=== PATIENT | female | born 1975 | race Caucasian/White ===

== ENCOUNTER 2017-06-11 08:04 | Day surgery (SDC) | payer OTHER ==
[2017-06-10 17:12] VITALS: BMI 25.7
[~2017-06-11 08:04] MED LIST: HEPARIN NA (PORCINE) 5,000 UNITS/ML 1ML VIAL SQ ONE
--- NOTE | 2017-06-11 09:57 | HP ---
History & Physical Update - History History: No Change - Physical Physical: No Change - Assessment Assessment: No Change - Plan Plan: No Change
[2017-06-11] MEDS ORDERED: DEXAMETHASONE SOD PHOSPHATE 4 MG/1 ML VIAL ONE (10:02)
[2017-06-11] MEDS ORDERED: ceFAZolin SODIUM 1 GM VIAL ONE (10:02)
[2017-06-11] MEDS ORDERED: PROPOFOL 20 ML ONE (10:02)
[2017-06-11] MEDS ORDERED: MIDAZOLAM HCL 2 MG/2 ML SINGLE DOSE VIAL ONE (10:02)
[2017-06-11] MEDS ORDERED: ROCURONIUM BROMIDE 50 MG/5 ML VIAL ONE (10:02)
[2017-06-11] MEDS ORDERED: LIDOCAINE HCL/PF 2% SDV 5ML VIAL ONE (10:02)
[2017-06-11] MEDS ORDERED: LIDOCAINE HCL 1%, 10 MG/ML (20ML VIAL) ONE (10:03)
[2017-06-11] MEDS ORDERED: HEPARIN NA (PORCINE) 5,000 UNITS/ML 1ML VIAL ONE (10:05)
[2017-06-11] MEDS ORDERED: ONDANSETRON 4 MG/2 ML VIAL IVPUSH PRN (10:15)
[2017-06-11] MEDS ORDERED: LACTATED RINGERS SOLUTION 1,000 ML IV SCH (10:15)
[2017-06-11] MEDS ORDERED: oxyCODONE HCL 5 MG TABLET PO PRN (10:15)
[2017-06-11] MEDS ORDERED: ceFAZolin SODIUM 1 GM VIAL IVPB ONE (10:36)
[2017-06-11] MEDS ORDERED: HEPARIN NA (PORCINE) 5,000 UNITS/ML 1ML VIAL SQ ONE ×2 (12:00)
--- NOTE | 2017-06-11 12:26 | OP ---
Operative Note - Note: Operative Date: 06/11/17 Pre-Operative Diagnosis: Carcinoma right breast. Right deep cerevical lymphadenopathy. Operation: 1)Excision of right deep cervical lymph node. 2)Placement of portacth in left chest , with port , under ultrasound guidance and under fluoroscopy Findings: Enlatged cervical lymph node , mass right breast. Post-Operative Diagnosis: Same as Pre-op Surgeon: Patricia Ferrell Anesthesiologist/DRUM MAKER: Daquan Morocho Anesthesia: General Specimens Removed: Right deep cervical lymph node Estimated Blood Loss (mls): 10 Operative Report Dictated: Yes
[2017-06-11 14:23] VITALS: TEMP 98
--- NOTE | 2017-06-11 15:19 | OP ---
DATE OF OPERATION: 06/11/2017 PREOPERATIVE DIAGNOSIS: Large carcinoma of the right breast with right cervical lymphadenopathy. POSTOPERATIVE DIAGNOSIS: Large carcinoma of the right breast with right cervical lymphadenopathy. OPERATIVE PROCEDURE: 1. Excision biopsy of right deep cervical lymph node. 2. Placement of Port-A-Cath (centrally placed venous catheter with port) under ultrasound and fluoroscopy. SURGEON: Leonora Ferrell MD ANESTHESIA: General anesthesia. OPERATIVE DESCRIPTION: This 42-year-old woman presented with a large mass in the right breast which was more than 8 cm in diameter. Patient was found to have cervical lymph nodes in the supraclavicular region on clinical examination in the office. Patient is, therefore, brought in for biopsy of the right cervical lymph node. She has a diagnosis of the breast with KRAS carcinoma. She is being treated by neoadjuvant therapy before having a mastectomy. Consent was obtained for the procedure. Risks, benefits, and complications were discussed. The patient was placed with the neck in extension after she was given general anesthesia. Time-out was called, and she was given 1 g of Ancef. The neck was painted and draped. A horizontal skin incision was made in the supraclavicular region of the neck. The incision was deepened through the skin, platysma, and the subcutaneous tissue. A hard 2-cm in diameter cervical lymph node was identified. This was completely excised, sent to Pathology. Frozen section showed no gross malignancy. Further workup will be done. The wound was irrigated. Hemostasis was satisfactory. The platysma was approximately by interrupted 3-0 Vicryl sutures, and skin approximated with continuous 4-0 Monocryl sutures in a running subcuticular fashion. Patient was then redraped. The left chest and the upper right chest were painted and draped. Again, a time-out was called. A horizontal skin incision was made over the 3rd intercostal space and the anterior chest wall for about 4-5 cm. This was carried all the way down to the chest wall. The subcutaneous tunnel was then created all the way up to the clavicle. Small incision was made in the infraclavicular region, and using the [employer] system, the left subclavian vein was accessed with the needle. This was guided with the ultrasound showing subclavian vein and the subclavian artery. Once the needle was introduced into the subclavian vein, small guidewire was introduced through the vein into the superior vena cava. This was monitored under fluoroscopy. The needle was removed, and a large dilator sheath was introduced over the guidewire into the subclavian vein. The narrow guidewire was removed, and a larger guidewire for placement of the Port-A-Cath was introduced through the sheath into the superior vena cava. This was again monitored under fluoroscopy to be going in the right direction. The sheath was removed, and a large dilator sheath for the Port-A-Cath was introduced through the guidewire into the superior vena cava. This was monitored again under fluoroscopy. The dilator was removed; sheath was left in place. A double lumen Port-A-Cath was then brought through the chest wall incision down into the incision in the infraclavicular region. This was then introduced through the sheath into the superior vena cava. The sheath was then peeled off. Tip of the catheter was placed in the superior vena cava. There was no arrhythmia. The excess of the catheter was then cut, and the catheter was then connected to the double lumen chamber. With a locking device, the catheter was locked in place. The chamber and the catheter were flushed with heparinized saline with free flow of blood through the catheter into the chamber. Once again, the chamber was flushed with heparinized saline of 1:5000 heparin, 1 mL was injected into the chamber. There was no kink in the system, and the tip of the catheter was appropriate in the superior vena cava. There was no pneumothorax. Patient was being ventilated satisfactorily. The wound was irrigated. The chamber was anchored to the chest wall with interrupted 3-0 Vicryl sutures. The subcutaneous fat was approximated with interrupted 3-0 Vicryl sutures, and skin approximated with continuous 4-0 Monocryl sutures in a running subcuticular fashion. The small incision in the infraclavicular region was also approximated with buried interrupted 3-0 Vicryl sutures and subcuticular 4-0 Monocryl sutures. Estimated blood loss was less than 10 mL. Sponge count and instrument count were correct. Steri-Strips were applied across incision. Sterile dressing was placed. Patient will get a chest x-ray in the recovery room. Sponge count and instrument count were correct. Patient tolerated the procedure well, was extubated, and sent to the recovery room in satisfactory and stable condition. John CAMPA/[id number]
[2017-06-11 16:09] VITALS: BP 130/77; PULSE 83
--- NOTE | 2017-06-17 09:05 | PATH ---
Surgical Pathology Report Patient Name: FRANCISCA YANG [facility]. Rec. #: [id number] /Age/Gender: 1975 (Age: 42) / F Account: [id number] Location: [facility] SURGICAL Taken: 06/11/2017 Received: 06/11/2017 Reported: 06/17/2017 Physicians: Leonora Ferrell M.D. Specimen(s) Received RIGHT CERVICAL LYMPH NODE Clinical History Hx/o breast cancer Enlarged right cervical lymph node Intraoperative Consult Diagnosis Lymph node, right cervical, touch prep: Lymphoid population present; no carcinoma identified. Dr. Nguyen, 06/11/17. Final Diagnosis LYMPH NODE, RIGHT CERVICAL, EXCISIONAL BIOPSY: BENIGN LYMPH NODE WITH MILD PARACORTICAL HYPERPLASIA. NO EVIDENCE OF METASTATIC CARCINOMA OR LYMPHOPROLIFERATIVE DISORDER. SEE COMMENT. Comment: This case was seen in consultation with hematopathology service at [place], [place] ([id number], Dr. Robert). The diagnosis above reflects the consultation opinion. The specimen consists of a lymph node with attached surrounding adipose tissue. The architecture of the lymph node is preserved, the sinuses are patent. Follicles with germinal center formation are present; focally expanded paracortical zone is seen. Immunostains demonstrate normal distribution of B-cells and T-cells. Aberrant immunoprofiles are not seen. CD20 and PAX-5 immunostains highlight B-cells; CD3 and CD5 highlight T cells. The germinal centers are positive for CD10 and BCL-6 and are negative for BCL-2 immunostains. BCL-1 is negative. CD21 and CD23 highlight follicular dendritic cells. RON highlights very rare positive cells. Ki67 is positive in germinal centers. Ae1/Ae3 keratin is negative. Flow cytometry performed and interpreted on the concurrent specimen [place], [place] ([id number]) showed no clonal B-cells or atypical T-cell population. The sample was composed mostly of small and medium-sized lymphocytes including a mixture of polyclonal B-cells and immunophenotypically normal CD4+ and CD8+ T-cells. Electronically Signed Curt Nguyen M.D. Gross Description Received fresh, labeled "right cervical lymph node biopsy" is a 1.5 x 1 x 0.4 cm hayward-pink rubbery lymph node. The specimen is bisected, one touch prep is made. A portion of the specimen is submitted in RPMI for flow cytometry. The remaining of the specimen is submitted in one cassette. AF/06/11/2017 final06/11/2017
--- NOTE | 2017-06-17 17:20 | CONS ---
DATE OF CONSULTATION: 06/17/2017 PULMONARY CONSULTATION REFERRING PHYSICIAN: Fe Jimenez M.D. HISTORY OF PRESENT ILLNESS: The patient is a 42-year-old female recently diagnosed breast cancer, history of asthma, sinusitis, scoliosis, admitted to [facility] for chemotherapy. Patient was recently diagnosed with right breast mass. The biopsy was positive for CA, for malignancy. Patient also recently underwent a lymph node biopsy in the cervical node and was negative, and revealed no evidence of metastatic carcinoma. Patient presented to [facility] for chemotherapy. Apparently patient was noted today while undergoing chemotherapy to have some mild expiratory wheezes, which was treated with inhaled bronchodilators with good clinical response. The patient has history of asthma since age 21. She has never been intubated. There is no history of hospitalization. She is currently maintained on Singulair and albuterol inhaler. daily basis. Denies any chest pains or palpitations. At the current time, she denies any shortness of breath, cough, hemoptysis. Denies any fevers, weight loss, or night sweats. PAST MEDICAL HISTORY: Again includes breast carcinoma, COPD, asthma, sinusitis, hearing loss and scoliosis. REVIEW OF SYSTEMS: No orthopnea, no PND, no cough, no chest pain, no palpitation, no abdominal pain, no lower extremity edema. MEDICATION: Albuterol p.r.n. and dexamethasone, , ranitidine, diphenhydramine. PHYSICAL EXAMINATION: General: The patient is a well-developed, well-nourished female, awake, alert, in no acute distress. Vital signs: She is afebrile. Blood pressure 100/64, respiratory rate 14. HEENT: Head is normocephalic, atraumatic. Neck: Supple without any lymphadenopathy. Heart: Regular. S1, S2. Chest: Clear. Abdomen: Soft. Bowel sounds positive. Extremities: No cyanosis, edema. LABORATORY: WBC is 10.8, hemoglobin 13.0, hematocrit 40.8 with platelet count 280,000. BUN 18, creatinine 0.6. Chest x-ray from June 11, 2017, no infiltrates and/or effusions. Possible subcutaneous emphysema, right supraclavicular region. IMPRESSION: 1. Recently diagnosed breast cancer, currently on chemotherapy. 2. Cervical adenopathy, biopsy negative. 3. Asthma, clinically stable. PLAN: Inhaled bronchodilators p.r.n., continue chemotherapy as per oncology. PFTs as outpatient. Also obtain followup chest x-ray. CHERY JAMES M.D. DUGLAS/[id number]
== END 2017-06-11 15:55 | disposition home or self-care (01) ==
LOC: JASU-SURG 08:04
PROVIDERS: ATTEND Specialist
PROC: 07B10ZX Excision of Right Neck Lymphatic, Open Approach, Diagnostic (ICD-10-PCS; principal; 2017-06-11 09:30)
PROC: 0JH63XZ Insertion of Tunneled Vascular Access Device into Chest Subcutaneous Tissue and Fascia, Percutaneous Approach (ICD-10-PCS; 2017-06-11 09:30)
DX: C50.911 Malignant neoplasm of unspecified site of right female breast (principal); R59.0 Localized enlarged lymph nodes
CPT/HCPCS: 36561; 38510; 76937; 77001; C1751; 71010-TC; 76000-TC; 84703; 88305-TC; 88329; 94760; J1644

== ENCOUNTER 2017-06-17 07:47 | Day surgery (SDC) | payer OTHER ==
[2017-06-17] MEDS ORDERED: RANITIDINE IVPB ONE (10:00)
[2017-06-17] MEDS ORDERED: DEXAMETHASONE INJECTION 20 MG in SODIUM CHLORIDE 50 ML IVPB ONE (10:00)
[2017-06-17] MEDS ORDERED: SODIUM CHLORIDE IVPB ONE (10:00)
[2017-06-17] MEDS ORDERED: DIPHENHYDRAMINE IVPB ONE (10:00)
[2017-06-17] MEDS ORDERED: PALONOSETRON HCL 0.25 MG in SODIUM CHLORIDE 50 ML IVPB ONE (10:00)
[2017-06-17] MEDS ORDERED: SODIUM CHLORIDE 250 ML IV ONE ×2 (10:00→11:30)
[2017-06-17] MEDS ORDERED: PACLITAXEL 138 MG in SODIUM CHLORIDE 250 ML IVPB ONE (10:30)
[2017-06-17 11:12] LABS: BASOPHIL 0.7 % (0-2.0); EOSINOPHIL 7.8 % (0-4.5); MCH 26.9 pg (25.7-33.7); MCHC 31.9 g/dl (32.0-36.0); MEAN CELL VOLUME 84.2 fl (80-96); MEAN PLT VOLUME 9.3 fl (7.5-11.1); NEUTROPHILS 55.3 % (42.8-82.8); PLATELET COUNT 280 K/MM3 (134-434); RDW 13.2 % (11.6-15.6); WHITE BLOOD COUNT 10.8 K/mm3 (4.0-10.0)
[2017-06-17 11:41] LABS: ALBUMIN 3.7 g/dl (3.4-5.0); ANION GAP 8 (8-16); BILIRUBIN,TOTAL 0.3 mg/dL (0.2-1.0); CO2 25 mmol/L (21-32); CREATININE 0.6 mg/dL (0.55-1.02); GLUCOSE,RANDOM 81 mg/dL (74-106); MAGNESIUM 2.1 mg/dL (1.8-2.4); SGOT/AST 16 U/L (15-37); SGPT/ALT 21 U/L (12-78); TOT PROT 7.9 g/dl (6.4-8.2)
[2017-06-17 11:42] LABS: ALK PHOS 54 U/L (45-117)
[2017-06-17 11:51] LABS: BILIRUBIN,DIRECT < 0.2 mg/dL (0.0-0.2)
[2017-06-17] MEDS ORDERED: ALBUTEROL SO4 6.7 GM HFA INHALER IH PRN (13:09)
--- NOTE | 2017-06-17 16:43 | PN ---
Progress Note (short form) - Note Progress Note: PULMONARY CONSULTATION DICTATED 06/17/17 IMP BREAST CA CHRONIC ASTHMA H/O SINUSITIS ? SUBCUTANEOUS EMPHYSEMA PLAN INHALED BRONCHODILATORS CHEMO PER ONCOLOGY PFTS OUTPATIENT CHEST X-RAY DR JAMES Problem List - Problems (1) Asthma Code(s): J45.909 - UNSPECIFIED ASTHMA, UNCOMPLICATED (2) Breast cancer Code(s): C50.919 - MALIGNANT NEOPLASM OF UNSP SITE OF UNSPECIFIED FEMALE BREAST (3) Subcutaneous emphysema Code(s): T79.7XXA - TRAUMATIC SUBCUTANEOUS EMPHYSEMA, INITIAL ENCOUNTER
[2017-06-17 18:11] VITALS: BP 128/65; PULSE 92
[2017-06-17 18:58] VITALS: TEMP 98.2
[2017-06-17] MEDS ORDERED: PORTA CATH FLUSH 10 ML IVPUSH ONE ×2 (19:01→19:05)
== END 2017-06-17 18:45 | disposition home or self-care (01) ==
LOC: JONCCHEMO 07:47 → J7W 13:04 → JONCCHEMO 18:45
PROVIDERS: ATTEND Internal Medicine Hematology & Oncology
DX: Z51.11 Encounter for antineoplastic chemotherapy (principal); C50.511 Malignant neoplasm of lower-outer quadrant of right female breast
CPT/HCPCS: 36415; 71010-TC; 80053; 80076; 83735; 85025; 86300; 96361; 96375; 96413; J2469

== ENCOUNTER 2017-06-24 07:20 | Day surgery (SDC) | payer OTHER ==
[2017-06-24] MEDS ORDERED: SODIUM CHLORIDE 250 ML IV ONE ×2 (08:00→10:00)
[2017-06-24] MEDS ORDERED: SODIUM CHLORIDE IVPB ONE (08:30)
[2017-06-24] MEDS ORDERED: DIPHENHYDRAMINE IVPB ONE (08:30)
[2017-06-24] MEDS ORDERED: PALONOSETRON HCL 0.25 MG in SODIUM CHLORIDE 50 ML IVPB ONE (08:30)
[2017-06-24] MEDS ORDERED: DEXAMETHASONE INJECTION 10 MG in SODIUM CHLORIDE 50 ML IVPB ONE (08:30)
[2017-06-24] MEDS ORDERED: RANITIDINE IVPB ONE (08:30)
[2017-06-24] MEDS ORDERED: PACLITAXEL 138 MG in SODIUM CHLORIDE 250 ML IVPB ONE (09:00)
[2017-06-24 11:45] LABS: BASOPHIL 0.6 % (0-2.0); EOSINOPHIL 7.9 % (0-4.5); MCH 26.9 pg (25.7-33.7); MCHC 32.2 g/dl (32.0-36.0); MEAN CELL VOLUME 83.6 fl (80-96); MEAN PLT VOLUME 9.4 fl (7.5-11.1); NEUTROPHILS 56.9 % (42.8-82.8); PLATELET COUNT 355 K/MM3 (134-434); RDW 12.9 % (11.6-15.6); WHITE BLOOD COUNT 11.9 K/mm3 (4.0-10.0)
[2017-06-24 12:13] LABS: ALBUMIN 4.2 g/dl (3.4-5.0); ALK PHOS 60 U/L (45-117); ANION GAP 8 (8-16); BILIRUBIN,DIRECT < 0.1 mg/dL (0.0-0.2); BILIRUBIN,TOTAL 0.3 mg/dL (0.2-1.0); CALCIUM 9.3 mg/dL (8.5-10.1); CO2 26 mmol/L (21-32); CREATININE 0.6 mg/dL (0.55-1.02); GLUCOSE,RANDOM 92 mg/dL (74-106); SGOT/AST 13 U/L (15-37); SGPT/ALT 21 U/L (12-78); TOT PROT 8.3 g/dl (6.4-8.2)
[2017-06-24 15:39] VITALS: BP 121/85; PULSE 80; TEMP 98.8
[2017-06-24] MEDS ORDERED: PORTA CATH FLUSH 10 ML IVPUSH ONE ×2 (16:27→17:50)
== END 2017-06-24 18:00 | disposition home or self-care (01) ==
LOC: JONCCHEMO 07:20 → J7W 11:55 → JONCCHEMO 18:00
PROVIDERS: ATTEND Internal Medicine Hematology & Oncology
DX: Z51.11 Encounter for antineoplastic chemotherapy (principal); C54.1 Malignant neoplasm of endometrium
CPT/HCPCS: 36415; 80048; 80076; 85025; 96361; 96367; 96375; 96413; J2469

== ENCOUNTER 2017-07-01 07:27 | Day surgery (SDC) | payer OTHER ==
[2017-07-01] MEDS ORDERED: SODIUM CHLORIDE 250 ML IV ONE ×2 (08:00→10:00)
[2017-07-01] MEDS ORDERED: SODIUM CHLORIDE IVPB ONE (08:30)
[2017-07-01] MEDS ORDERED: DIPHENHYDRAMINE IVPB ONE (08:30)
[2017-07-01] MEDS ORDERED: DEXAMETHASONE INJECTION 10 MG in SODIUM CHLORIDE 50 ML IVPB ONE (08:30)
[2017-07-01] MEDS ORDERED: RANITIDINE IVPB ONE (08:30)
[2017-07-01] MEDS ORDERED: PALONOSETRON HCL 0.25 MG in SODIUM CHLORIDE 50 ML IVPB ONE (08:30)
[2017-07-01] MEDS ORDERED: PACLITAXEL 138 MG in SODIUM CHLORIDE 250 ML IVPB ONE (09:00)
[2017-07-01 11:13] LABS: BASOPHIL 0.9 % (0-2.0); EOSINOPHIL 6.3 % (0-4.5); MCH 27.1 pg (25.7-33.7); MCHC 32.7 g/dl (32.0-36.0); MEAN CELL VOLUME 82.8 fl (80-96); MEAN PLT VOLUME 9.3 fl (7.5-11.1); NEUTROPHILS 53.9 % (42.8-82.8); PLATELET COUNT 343 K/MM3 (134-434); RDW 13.2 % (11.6-15.6)
[2017-07-01 11:41] LABS: ALBUMIN 3.6 g/dl (3.4-5.0); ANION GAP 8 (8-16); BILIRUBIN,DIRECT < 0.1 mg/dL (0.0-0.2); CALCIUM 8.9 mg/dL (8.5-10.1); CO2 24 mmol/L (21-32); CREATININE 0.7 mg/dL (0.55-1.02); GLUCOSE,RANDOM 117 mg/dL (74-106); SGOT/AST 17 U/L (15-37); SGPT/ALT 28 U/L (12-78)
[2017-07-01 11:43] LABS: ALK PHOS 53 U/L (45-117); BILIRUBIN,TOTAL 0.4 mg/dL (0.2-1.0); TOT PROT 7.5 g/dl (6.4-8.2)
[2017-07-01 15:34] VITALS: TEMP 97.8
[2017-07-01] MEDS ORDERED: PORTA CATH FLUSH 10 ML IVPUSH ONE (15:34)
[2017-07-01 16:52] VITALS: BP 122/79; PULSE 86
== END 2017-07-01 17:45 | disposition home or self-care (01) ==
LOC: JONCCHEMO 07:27 → J7W 11:56 → JONCCHEMO 17:45
PROVIDERS: ATTEND Internal Medicine Hematology & Oncology
DX: Z51.11 Encounter for antineoplastic chemotherapy (principal); C54.1 Malignant neoplasm of endometrium
CPT/HCPCS: 36415; 80053; 80076; 83735; 85025; 96361; 96367; 96375; 96413; J2469

== ENCOUNTER 2017-07-08 07:23 | Day surgery (SDC) | payer OTHER ==
[2017-07-08] MEDS ORDERED: SODIUM CHLORIDE 250 ML IV ONE ×2 (08:00→10:00)
[2017-07-08] MEDS ORDERED: RANITIDINE IVPB ONE (08:30)
[2017-07-08] MEDS ORDERED: SODIUM CHLORIDE IVPB ONE (08:30)
[2017-07-08] MEDS ORDERED: DEXAMETHASONE INJECTION 10 MG in SODIUM CHLORIDE 50 ML IVPB ONE (08:30)
[2017-07-08] MEDS ORDERED: PALONOSETRON HCL 0.25 MG in SODIUM CHLORIDE 50 ML IVPB ONE (08:30)
[2017-07-08] MEDS ORDERED: DIPHENHYDRAMINE IVPB ONE (08:30)
[2017-07-08] MEDS ORDERED: PACLITAXEL 138 MG in SODIUM CHLORIDE 250 ML IVPB ONE (09:00)
[2017-07-08 10:45] LABS: ALBUMIN 3.8 g/dl (3.4-5.0); ALK PHOS 54 U/L (45-117); ANION GAP 5 (8-16); BILIRUBIN,DIRECT < 0.1 mg/dL (0.0-0.2); BILIRUBIN,TOTAL 0.3 mg/dL (0.2-1.0); CALCIUM 9.1 mg/dL (8.5-10.1); CO2 28 mmol/L (21-32); CREATININE 0.5 mg/dL (0.55-1.02); GLUCOSE,RANDOM 114 mg/dL (74-106); SGOT/AST 17 U/L (15-37); SGPT/ALT 22 U/L (12-78); TOT PROT 7.7 g/dl (6.4-8.2)
[2017-07-08 15:58] VITALS: BP 122/74; PULSE 68; TEMP 98.3
== END 2017-07-08 15:00 | disposition home or self-care (01) ==
LOC: JONCCHEMO 07:23 → J7W 09:23 → JONCCHEMO 15:00
PROVIDERS: ATTEND Internal Medicine Hematology & Oncology
DX: Z51.11 Encounter for antineoplastic chemotherapy (principal); C54.1 Malignant neoplasm of endometrium
CPT/HCPCS: 36415; 80048; 80076; 96361; 96367; 96375; 96413; 96415; J2469

== ENCOUNTER 2017-07-15 07:22 | Day surgery (SDC) | payer OTHER ==
[2017-07-15] MEDS ORDERED: SODIUM CHLORIDE 250 ML IV ONE ×2 (08:00→10:00)
[2017-07-15] MEDS ORDERED: RANITIDINE INJECTION 50 MG, DIPHENHYDRAMINE 50 MG in SODIUM CHLORIDE 100 ML IVPB ONE (08:30)
[2017-07-15] MEDS ORDERED: DEXAMETHASONE INJECTION 10 MG in SODIUM CHLORIDE 50 ML IVPB ONE (08:30)
[2017-07-15] MEDS ORDERED: PALONOSETRON HCL 0.25 MG in SODIUM CHLORIDE 50 ML IVPB ONE (08:30)
[2017-07-15] MEDS ORDERED: PACLITAXEL 138 MG in SODIUM CHLORIDE 250 ML IVPB ONE (09:00)
[2017-07-15 12:17] LABS: BASOPHIL 0.8 % (0-2.0); EOSINOPHIL 5.3 % (0-4.5); MCH 26.9 pg (25.7-33.7); MCHC 32.4 g/dl (32.0-36.0); MEAN CELL VOLUME 83.2 fl (80-96); MEAN PLT VOLUME 9.8 fl (7.5-11.1); NEUTROPHILS 54.8 % (42.8-82.8); PLATELET COUNT 335 K/MM3 (134-434); RDW 13.6 % (11.6-15.6)
[2017-07-15 12:56] LABS: ALBUMIN 3.6 g/dl (3.4-5.0); ANION GAP 6 (8-16); BILIRUBIN,DIRECT < 0.1 mg/dL (0.0-0.2); BILIRUBIN,TOTAL 0.2 mg/dL (0.2-1.0); CALCIUM 9.3 mg/dL (8.5-10.1); CO2 29 mmol/L (21-32); CREATININE 0.6 mg/dL (0.55-1.02); GLUCOSE,RANDOM 110 mg/dL (74-106); SGOT/AST 18 U/L (15-37); SGPT/ALT 35 U/L (12-78); TOT PROT 7.6 g/dl (6.4-8.2)
[2017-07-15 12:57] LABS: ALK PHOS 59 U/L (45-117)
[2017-07-15 17:21] VITALS: TEMP 97.9
[2017-07-15 17:30] VITALS: BP 128/76; PULSE 70
[2017-07-15] MEDS ORDERED: PORTA CATH FLUSH 10 ML IVPUSH ONE (17:30)
== END 2017-07-15 17:34 | disposition home or self-care (01) ==
LOC: JONCCHEMO 07:22
PROVIDERS: ATTEND Internal Medicine Hematology & Oncology
DX: Z51.11 Encounter for antineoplastic chemotherapy (principal); C54.1 Malignant neoplasm of endometrium
CPT/HCPCS: 36415; 80053; 80076; 83735; 85025; 96361; 96367; 96375; 96413; J2469

== ENCOUNTER 2017-07-22 07:31 | Day surgery (SDC) | payer OTHER ==
[2017-07-22] MEDS ORDERED: DIPHENHYDRAMINE 25 MG, RANITIDINE INJECTION 50 MG in SODIUM CHLORIDE 50 ML IVPB ONE (10:00)
[2017-07-22] MEDS ORDERED: DEXAMETHASONE INJECTION 10 MG in SODIUM CHLORIDE 50 ML IVPB ONE (10:00)
[2017-07-22] MEDS ORDERED: PALONOSETRON HCL 0.25 MG in SODIUM CHLORIDE 50 ML IVPB ONE (10:00)
[2017-07-22] MEDS ORDERED: SODIUM CHLORIDE 250 ML IV ONE ×2 (10:00→11:30)
[2017-07-22] MEDS ORDERED: PACLITAXEL 138 MG in SODIUM CHLORIDE 250 ML IVPB ONE (10:30)
[2017-07-22 11:17] LABS: BASOPHIL 0.9 % (0-2.0); EOSINOPHIL 4.5 % (0-4.5); MCH 27.3 pg (25.7-33.7); MCHC 32.6 g/dl (32.0-36.0); MEAN CELL VOLUME 83.8 fl (80-96); MEAN PLT VOLUME 9.4 fl (7.5-11.1); NEUTROPHILS 56.9 % (42.8-82.8); PLATELET COUNT 367 K/MM3 (134-434); RDW 14.2 % (11.6-15.6)
[2017-07-22 11:50] LABS: ALBUMIN 3.8 g/dl (3.4-5.0); ANION GAP 5 (8-16); BILIRUBIN,DIRECT < 0.1 mg/dL (0.0-0.2); BILIRUBIN,TOTAL 0.4 mg/dL (0.2-1.0); CALCIUM 9.2 mg/dL (8.5-10.1); CO2 28 mmol/L (21-32); CREATININE 0.6 mg/dL (0.55-1.02); GLUCOSE,RANDOM 86 mg/dL (74-106); SGOT/AST 19 U/L (15-37); SGPT/ALT 32 U/L (12-78); TOT PROT 8.1 g/dl (6.4-8.2)
[2017-07-22 11:51] LABS: ALK PHOS 55 U/L (45-117)
[2017-07-22] MEDS ORDERED: ALTEPLASE 2 MG VIAL IVPUSH ONE (12:35)
[2017-07-22 17:06] VITALS: BP 126/84; PULSE 80; TEMP 98.3
== END 2017-07-22 16:20 | disposition home or self-care (01) ==
LOC: JONCCHEMO 07:31 → J7W 11:45 → JONCCHEMO 16:20
PROVIDERS: ATTEND Internal Medicine Hematology & Oncology
DX: Z51.11 Encounter for antineoplastic chemotherapy (principal); C54.1 Malignant neoplasm of endometrium
CPT/HCPCS: 36415; 80053; 80076; 85025; 96361; 96375; 96413; J2469; J2997

== ENCOUNTER 2017-07-29 07:20 | Day surgery (SDC) | payer OTHER ==
[2017-07-29] MEDS ORDERED: DEXAMETHASONE INJECTION 10 MG in SODIUM CHLORIDE 50 ML IVPB ONE (10:00)
[2017-07-29] MEDS ORDERED: PALONOSETRON HCL 0.25 MG in SODIUM CHLORIDE 50 ML IVPB ONE (10:00)
[2017-07-29] MEDS ORDERED: DIPHENHYDRAMINE 25 MG, RANITIDINE INJECTION 50 MG in SODIUM CHLORIDE 100 ML IVPB ONE (10:00)
[2017-07-29] MEDS ORDERED: SODIUM CHLORIDE 250 ML IV ONE ×2 (10:00→11:30)
[2017-07-29] MEDS ORDERED: PACLITAXEL 138 MG in SODIUM CHLORIDE 250 ML IVPB ONE (10:30)
[2017-07-29 11:14] LABS: BASOPHIL 0.9 % (0-2.0); EOSINOPHIL 4.3 % (0-4.5); MCH 26.8 pg (25.7-33.7); MCHC 31.8 g/dl (32.0-36.0); MEAN CELL VOLUME 84.3 fl (80-96); MEAN PLT VOLUME 9.4 fl (7.5-11.1); NEUTROPHILS 61.6 % (42.8-82.8); PLATELET COUNT 364 K/MM3 (134-434); RDW 14.6 % (11.6-15.6); WHITE BLOOD COUNT 8.4 K/mm3 (4.0-10.0)
[2017-07-29 11:42] LABS: ALBUMIN 3.7 g/dl (3.4-5.0); ALK PHOS 56 U/L (45-117); ANION GAP 10 (8-16); BILIRUBIN,DIRECT < 0.1 mg/dL (0.0-0.2); BILIRUBIN,TOTAL 0.3 mg/dL (0.2-1.0); CALCIUM 9.4 mg/dL (8.5-10.1); CO2 26 mmol/L (21-32); CREATININE 0.7 mg/dL (0.55-1.02); GLUCOSE,RANDOM 95 mg/dL (74-106); SGOT/AST 18 U/L (15-37); SGPT/ALT 29 U/L (12-78); TOT PROT 8.1 g/dl (6.4-8.2)
[2017-07-29] MEDS ORDERED: ALTEPLASE 2 MG VIAL CVP ONE (14:30)
[2017-07-29 18:54] VITALS: BP 115/82; PULSE 90; TEMP 98.1
[2017-07-29] MEDS ORDERED: PORTA CATH FLUSH 10 ML IVPUSH ONE (19:05)
== END 2017-07-29 17:05 | disposition home or self-care (01) ==
LOC: JONCCHEMO 07:20 → J7W 12:10 → JONCCHEMO 17:05
PROVIDERS: ATTEND Internal Medicine Hematology & Oncology
DX: Z51.11 Encounter for antineoplastic chemotherapy (principal); C54.1 Malignant neoplasm of endometrium
CPT/HCPCS: 36415; 80053; 80076; 83735; 84702; 84703; 85025; 96361; 96367; 96375; 96413; J2469; J2997

== ENCOUNTER 2017-08-05 07:38 | Day surgery (SDC) | payer OTHER ==
[2017-08-05] MEDS ORDERED: DEXAMETHASONE INJECTION 10 MG in SODIUM CHLORIDE 50 ML IVPB ONE (10:00)
[2017-08-05] MEDS ORDERED: PALONOSETRON HCL 0.25 MG in SODIUM CHLORIDE 50 ML IVPB ONE (10:00)
[2017-08-05] MEDS ORDERED: SODIUM CHLORIDE 250 ML IV ONE ×2 (10:00→11:00)
[2017-08-05] MEDS ORDERED: DIPHENHYDRAMINE 25 MG, RANITIDINE INJECTION 50 MG in SODIUM CHLORIDE 100 ML IVPB ONE (10:00)
[2017-08-05] MEDS ORDERED: PACLITAXEL 138 MG in SODIUM CHLORIDE 250 ML IVPB ONE (10:30)
[2017-08-05 10:55] LABS: BASOPHIL 0.9 % (0-2.0); MCHC 32.4 g/dl (32.0-36.0); MEAN CELL VOLUME 83.2 fl (80-96); MEAN PLT VOLUME 9.1 fl (7.5-11.1); NEUTROPHILS 54.5 % (42.8-82.8); PLATELET COUNT 338 K/MM3 (134-434); RDW 14.3 % (11.6-15.6); WHITE BLOOD COUNT 8.1 K/mm3 (4.0-10.0)
[2017-08-05 11:45] LABS: ALBUMIN 3.7 g/dl (3.4-5.0); ALK PHOS 52 U/L (45-117); ANION GAP 9 (8-16); BILIRUBIN,DIRECT < 0.1 mg/dL (0.0-0.2); BILIRUBIN,TOTAL 0.3 mg/dL (0.2-1.0); CALCIUM 8.7 mg/dL (8.5-10.1); CO2 26 mmol/L (21-32); CREATININE 0.5 mg/dL (0.55-1.02); GLUCOSE,RANDOM 91 mg/dL (74-106); SGOT/AST 19 U/L (15-37); SGPT/ALT 29 U/L (12-78); TOT PROT 7.5 g/dl (6.4-8.2)
[2017-08-05 13:07] VITALS: TEMP 98.1
[2017-08-05] MEDS ORDERED: PORTA CATH FLUSH 10 ML IVPUSH PRN (13:07)
[2017-08-05] MEDS ORDERED: PORTA CATH FLUSH 10 ML IVPUSH ONE (16:30)
[2017-08-05 17:56] VITALS: BP 129/81; PULSE 98
== END 2017-08-05 17:30 | disposition home or self-care (01) ==
LOC: JONCCHEMO 07:38 → J7W 12:20 → JONCCHEMO 17:30
PROVIDERS: ATTEND Internal Medicine Hematology & Oncology
DX: Z51.11 Encounter for antineoplastic chemotherapy (principal); C54.1 Malignant neoplasm of endometrium
CPT/HCPCS: 36415; 80053; 80076; 83735; 84703; 85025; 96361; 96367; 96375; 96413; J2469

== ENCOUNTER 2017-08-11 06:56 | Day surgery (SDC) | payer OTHER ==
[2017-08-11 09:17] LABS: EOSINOPHIL 3.1 % (0-4.5); MCH 27.2 pg (25.7-33.7); MCHC 32.9 g/dl (32.0-36.0); MEAN CELL VOLUME 82.7 fl (80-96); MEAN PLT VOLUME 9.5 fl (7.5-11.1); NEUTROPHILS 61.2 % (42.8-82.8); PLATELET COUNT 330 K/MM3 (134-434); RDW 14.7 % (11.6-15.6); WHITE BLOOD COUNT 8.8 K/mm3 (4.0-10.0)
[2017-08-11 09:55] LABS: ALBUMIN 3.7 g/dl (3.4-5.0); ANION GAP 8 (8-16); BILIRUBIN,DIRECT < 0.1 mg/dL (0.0-0.2); BILIRUBIN,TOTAL 0.4 mg/dL (0.2-1.0); CALCIUM 9.1 mg/dL (8.5-10.1); CO2 26 mmol/L (21-32); CREATININE 0.7 mg/dL (0.55-1.02); GLUCOSE,RANDOM 84 mg/dL (74-106); SGOT/AST 13 U/L (15-37); SGPT/ALT 24 U/L (12-78); TOT PROT 7.8 g/dl (6.4-8.2)
[2017-08-11 09:56] LABS: ALK PHOS 55 U/L (45-117)
[2017-08-11] MEDS ORDERED: DEXAMETHASONE INJECTION 10 MG in SODIUM CHLORIDE 50 ML IVPB ONE (10:00)
[2017-08-11] MEDS ORDERED: SODIUM CHLORIDE 250 ML IV ONE ×2 (10:00→11:30)
[2017-08-11] MEDS ORDERED: DIPHENHYDRAMINE 25 MG, RANITIDINE INJECTION 50 MG in SODIUM CHLORIDE 100 ML IVPB ONE (10:00)
[2017-08-11] MEDS ORDERED: PALONOSETRON HCL 0.25 MG in SODIUM CHLORIDE 50 ML IVPB ONE (10:00)
[2017-08-11 10:13] VITALS: TEMP 97.1
[2017-08-11] MEDS ORDERED: PORTA CATH FLUSH 10 ML IVPUSH ONE ×2 (10:19→14:39)
[2017-08-11] MEDS ORDERED: PACLITAXEL 138 MG in SODIUM CHLORIDE 250 ML IVPB ONE (10:30)
[2017-08-11 14:39] VITALS: BP 137/79; PULSE 89
== END 2017-08-11 14:26 | disposition home or self-care (01) ==
LOC: JONCCHEMO 06:56 → J7W 09:45 → JONCCHEMO 14:26
PROVIDERS: ATTEND Internal Medicine Hematology & Oncology
DX: Z51.11 Encounter for antineoplastic chemotherapy (principal); C54.1 Malignant neoplasm of endometrium
CPT/HCPCS: 36415; 80053; 80076; 83735; 84702; 84703; 85025; 96361; 96367; 96375; 96413; J2469

== ENCOUNTER 2017-08-19 07:07 | Day surgery (SDC) | payer OTHER ==
[2017-08-19] MEDS ORDERED: DEXAMETHASONE INJECTION 10 MG in SODIUM CHLORIDE 50 ML IVPB ONE (10:00)
[2017-08-19] MEDS ORDERED: ONDANSETRON INJECTION 12 MG in SODIUM CHLORIDE 50 ML IVPB ONE (10:00)
[2017-08-19] MEDS ORDERED: SODIUM CHLORIDE 250 ML IV ONE ×2 (10:00→12:00)
[2017-08-19] MEDS ORDERED: FOSAPREPITANT DIMEGLUMINE 150 MG in SODIUM CHLORIDE 150 ML IVPB ONE (10:00)
[2017-08-19] MEDS ORDERED: DOXORUBICIN HCL 104 MG in SODIUM CHLORIDE 100 ML IV ONE (10:30)
[2017-08-19 11:20] LABS: BASOPHIL 1.4 % (0-2.0); MCH 27.6 pg (25.7-33.7); MCHC 33.1 g/dl (32.0-36.0); MEAN CELL VOLUME 83.3 fl (80-96); NEUTROPHILS 52.5 % (42.8-82.8); PLATELET COUNT 363 K/MM3 (134-434); RDW 14.8 % (11.6-15.6); WHITE BLOOD COUNT 7.2 K/mm3 (4.0-10.0)
[2017-08-19] MEDS ORDERED: CYCLOPHOSPHAMIDE INJECTION 1,040 MG in SODIUM CHLORIDE 250 ML IVPB ONE (11:30)
[2017-08-19 11:45] LABS: ALBUMIN 3.5 g/dl (3.4-5.0); ANION GAP 8 (8-16); BILIRUBIN,DIRECT < 0.2 mg/dL (0.0-0.2); CALCIUM 9.1 mg/dL (8.5-10.1); CO2 25 mmol/L (21-32); CREATININE 0.6 mg/dL (0.55-1.02); GLUCOSE,RANDOM 90 mg/dL (74-106); SGOT/AST 14 U/L (15-37); SGPT/ALT 24 U/L (12-78)
[2017-08-19 11:48] LABS: ALK PHOS 58 U/L (45-117); BILIRUBIN,TOTAL 0.3 mg/dL (0.2-1.0); TOT PROT 7.7 g/dl (6.4-8.2)
[2017-08-19 16:46] VITALS: TEMP 97.9
[2017-08-19] MEDS ORDERED: PORTA CATH FLUSH 10 ML IVPUSH ONE (16:46)
[2017-08-19 17:47] VITALS: BP 132/81; PULSE 95
== END 2017-08-19 18:02 | disposition home or self-care (01) ==
LOC: JONCCHEMO 07:07 → J7W 12:52 → JONCCHEMO 18:02
PROVIDERS: ATTEND Internal Medicine Hematology & Oncology
DX: Z51.11 Encounter for antineoplastic chemotherapy (principal); C54.1 Malignant neoplasm of endometrium
CPT/HCPCS: 36415; 80053; 80076; 83735; 84702; 85025; 96361; 96367; 96375; 96413; 96417; J1453; J9070

== ENCOUNTER 2017-09-02 07:20 | Day surgery (SDC) | payer OTHER ==
[2017-09-02] MEDS ORDERED: SODIUM CHLORIDE 250 ML IV ONE ×2 (08:00→10:30)
[2017-09-02] MEDS ORDERED: FOSAPREPITANT DIMEGLUMINE 150 MG in SODIUM CHLORIDE 145 ML IVPB ONE (08:30)
[2017-09-02] MEDS ORDERED: DEXAMETHASONE INJECTION 10 MG in SODIUM CHLORIDE 50 ML IVPB ONE (08:30)
[2017-09-02] MEDS ORDERED: ONDANSETRON INJECTION 12 MG in SODIUM CHLORIDE 50 ML IVPB ONE (08:30)
[2017-09-02] MEDS ORDERED: DOXORUBICIN HCL 104 MG in SODIUM CHLORIDE 100 ML IV ONE (09:00)
[2017-09-02] MEDS ORDERED: CYCLOPHOSPHAMIDE INJECTION 1,040 MG in SODIUM CHLORIDE 250 ML IVPB ONE (10:00)
[2017-09-02 10:51] LABS: MCH 27.1 pg (25.7-33.7); MCHC 32.2 g/dl (32.0-36.0); MEAN PLT VOLUME 9.4 fl (7.5-11.1); PLATELET COUNT 259 K/MM3 (134-434); RDW 15.3 % (11.6-15.6); WHITE BLOOD COUNT 14.5 K/mm3 (4.0-10.0)
[2017-09-02 11:27] LABS: ALBUMIN 3.5 g/dl (3.4-5.0); ALK PHOS 68 U/L (45-117); ANION GAP 11 (8-16); BILIRUBIN,DIRECT < 0.2 mg/dL (0.0-0.2); BILIRUBIN,TOTAL 0.1 mg/dL (0.2-1.0); CO2 25 mmol/L (21-32); CREATININE 0.7 mg/dL (0.55-1.02); GLUCOSE,RANDOM 104 mg/dL (74-106); SGOT/AST 15 U/L (15-37); SGPT/ALT 17 U/L (12-78); TOT PROT 7.6 g/dl (6.4-8.2)
[2017-09-02 14:37] LABS: METAMYELOCYTE 8 % (0-2); TOTAL CELLS COUNTED 100
[2017-09-02 14:38] LABS: PLATELET ESTIMATE ADEQUATE
[2017-09-02 17:10] VITALS: TEMP 97.4
[2017-09-02] MEDS ORDERED: PORTA CATH FLUSH 10 ML IVPUSH ONE (17:37)
[2017-09-02 17:38] VITALS: BP 128/81; PULSE 90
== END 2017-09-02 17:40 | disposition home or self-care (01) ==
LOC: JONCCHEMO 07:20 → J7W 12:10 → JONCCHEMO 17:40
PROVIDERS: ATTEND Internal Medicine Hematology & Oncology
DX: Z51.11 Encounter for antineoplastic chemotherapy (principal); C54.1 Malignant neoplasm of endometrium
CPT/HCPCS: 36415; 80053; 80076; 83735; 85025; 96361; 96367; 96375; 96413; 96417; J1453; J9070

== ENCOUNTER 2017-09-16 07:25 | Day surgery (SDC) | payer OTHER ==
[2017-09-16] MEDS ORDERED: SODIUM CHLORIDE 250 ML IV ONE ×2 (08:00→10:30)
[2017-09-16] MEDS ORDERED: ONDANSETRON INJECTION 12 MG, DEXAMETHASONE INJECTION 10 MG in SODIUM CHLORIDE 100 ML IVPB ONE (08:30)
[2017-09-16] MEDS ORDERED: FOSAPREPITANT DIMEGLUMINE 150 MG in SODIUM CHLORIDE 145 ML IVPB ONE (08:30)
[2017-09-16] MEDS ORDERED: DOXORUBICIN HCL 104 MG in SODIUM CHLORIDE 100 ML IV ONE (09:00)
[2017-09-16] MEDS ORDERED: CYCLOPHOSPHAMIDE INJECTION 1,040 MG in SODIUM CHLORIDE 250 ML IVPB ONE (10:00)
[2017-09-16 12:40] LABS: MCH 27.7 pg (25.7-33.7); MCHC 32.4 g/dl (32.0-36.0); MEAN CELL VOLUME 85.4 fl (80-96); MEAN PLT VOLUME 9.4 fl (7.5-11.1); PLATELET COUNT 325 K/MM3 (134-434); WHITE BLOOD COUNT 10.8 K/mm3 (4.0-10.0)
[2017-09-16 13:04] LABS: ALBUMIN 3.7 g/dl (3.4-5.0); ALK PHOS 69 U/L (45-117); ANION GAP 7 (8-16); BILIRUBIN,DIRECT < 0.2 mg/dL (0.0-0.2); BILIRUBIN,TOTAL 0.2 mg/dL (0.2-1.0); CALCIUM 9.2 mg/dL (8.5-10.1); CO2 29 mmol/L (21-32); CREATININE 0.6 mg/dL (0.55-1.02); GLUCOSE,RANDOM 89 mg/dL (74-106); MAGNESIUM 1.9 mg/dL (1.8-2.4); SGOT/AST 13 U/L (15-37); SGPT/ALT 20 U/L (12-78); TOT PROT 7.5 g/dl (6.4-8.2)
[2017-09-16 14:08] LABS: TOTAL CELLS COUNTED 100
[2017-09-16 14:09] LABS: METAMYELOCYTE 4 % (0-2); MYELOCYTE 4 % (0-2); PLATELET ESTIMATE ADEQUATE
[2017-09-16 16:10] VITALS: TEMP 98.3
[2017-09-16] MEDS ORDERED: PORTA CATH FLUSH 10 ML IVPUSH ONE (16:10)
[2017-09-16 18:18] VITALS: BP 117/77; PULSE 85
== END 2017-09-16 18:18 | disposition home or self-care (01) ==
LOC: JONCCHEMO 07:25 → J7W 12:57 → JONCCHEMO 18:18
PROVIDERS: ATTEND Internal Medicine Hematology & Oncology
DX: Z51.11 Encounter for antineoplastic chemotherapy (principal); C54.1 Malignant neoplasm of endometrium
CPT/HCPCS: 36415; 80053; 80076; 83735; 85025; 96361; 96366; 96367; 96375; 96413; 96417; J1453; J9070

== ENCOUNTER 2017-09-17 08:03 | Day surgery (SDC) | payer OTHER ==
[~2017-09-17 08:03] MED LIST changes: -HEPARIN NA (PORCINE) 5,000 UNITS/ML 1ML VIAL SQ ONE; +PEGFILGRASTIM 6 MG/0.6 ML DISP.SYRIN SQ ONE
[2017-09-17 13:42] VITALS: BP 130/83; PULSE 81; TEMP 98
== END 2017-09-17 14:00 | disposition home or self-care (01) ==
LOC: JONCNONCHE 08:03 → J7W 13:34 → JONCNONCHE 14:00
PROVIDERS: ATTEND Internal Medicine Hematology & Oncology
PROC: 3E023GC Introduction of Other Therapeutic Substance into Muscle, Percutaneous Approach (ICD-10-PCS; principal; 2017-09-17)
DX: C50.919 Malignant neoplasm of unspecified site of unspecified female breast (principal)
CPT/HCPCS: 96372; J2505

== ENCOUNTER 2017-09-30 07:29 | Day surgery (SDC) | payer OTHER ==
[2017-09-30] MEDS ORDERED: SODIUM CHLORIDE 250 ML IV ONE ×2 (08:00→10:30)
[2017-09-30] MEDS ORDERED: DEXAMETHASONE INJECTION 10 MG, ONDANSETRON INJECTION 12 MG in SODIUM CHLORIDE 100 ML IVPB ONE (08:30)
[2017-09-30] MEDS ORDERED: FOSAPREPITANT DIMEGLUMINE 150 MG in SODIUM CHLORIDE 145 ML IVPB ONE (08:30)
[2017-09-30] MEDS ORDERED: SODIUM CHLORIDE IV ONE (09:00)
[2017-09-30] MEDS ORDERED: DOXORUBICIN HCL IV ONE (09:00)
[2017-09-30] MEDS ORDERED: CYCLOPHOSPHAMIDE INJECTION 1,040 MG in SODIUM CHLORIDE 250 ML IVPB ONE (10:00)
[2017-09-30 11:40] LABS: MCH 27.5 pg (25.7-33.7); MCHC 32.2 g/dl (32.0-36.0); MEAN CELL VOLUME 85.6 fl (80-96); MEAN PLT VOLUME 9.8 fl (7.5-11.1); PLATELET COUNT 333 K/MM3 (134-434); RDW 15.4 % (11.6-15.6); WHITE BLOOD COUNT 9.6 K/mm3 (4.0-10.0)
[2017-09-30 11:59] LABS: ALBUMIN 3.7 g/dl (3.4-5.0); ALK PHOS 80 U/L (45-117); ANION GAP 8 (8-16); BILIRUBIN,DIRECT < 0.2 mg/dL (0.0-0.2); BILIRUBIN,TOTAL 0.2 mg/dL (0.2-1.0); CALCIUM 9.1 mg/dL (8.5-10.1); CO2 25 mmol/L (21-32); CREATININE 0.6 mg/dL (0.55-1.02); GLUCOSE,RANDOM 84 mg/dL (74-106); MAGNESIUM 1.9 mg/dL (1.8-2.4); SGOT/AST 13 U/L (15-37); SGPT/ALT 21 U/L (12-78); TOT PROT 7.7 g/dl (6.4-8.2)
[2017-09-30] MEDS ORDERED: guaiFENesin/D-METHORPHAN HB 10 ML UNIT-DOSE CUPS PO ONE (12:45)
[2017-09-30 12:49] LABS: METAMYELOCYTE 2 % (0-2); MYELOCYTE 2 % (0-2); REACTIVE LYMPHOCYTES 2 % (0-80)
[2017-09-30 12:50] LABS: PLATELET COMMENTS NO CLUMPING NOTED; PLATELET ESTIMATE ADEQUATE
[2017-09-30] MEDS ORDERED: DEXAMETHASONE SOD PHOSPHATE 10 MG/1 ML VIAL IVPB ONE (13:00)
[2017-09-30] MEDS: ALBUTEROL SO4 2.5/IPRATROPIUM 0.5 INH SOL 3 ML VIAL.NEB. NEB SCH ×3 (13:55→17:25)
[2017-09-30] MEDS ORDERED: DEXAMETHASONE SOD PHOSPHATE 10 MG/1 ML VIAL IVPUSH ONE (14:00)
[2017-09-30 17:33] VITALS: BP 110/60; PULSE 101
[2017-09-30] MEDS ORDERED: PORTA CATH FLUSH 10 ML IVPUSH ONE (17:33)
[2017-09-30 17:35] VITALS: TEMP 98
== END 2017-09-30 18:07 | disposition home or self-care (01) ==
LOC: JONCCHEMO 07:29 → J7W 12:44 → JONCCHEMO 18:07
PROVIDERS: ATTEND Internal Medicine Hematology & Oncology
DX: Z51.11 Encounter for antineoplastic chemotherapy (principal); C50.919 Malignant neoplasm of unspecified site of unspecified female breast
CPT/HCPCS: 36415; 80053; 80076; 83735; 85025; 94640; 96361; 96366; 96367; 96375; 96413; 96417; J1453; J9070

== ENCOUNTER 2017-10-01 07:29 | Day surgery (SDC) | payer OTHER ==
[2017-10-01] MEDS ORDERED: PEGFILGRASTIM 6 MG/0.6 ML DISP.SYRIN SQ ONE (08:00)
[2017-10-01] MEDS ORDERED: ALBUTEROL SO4 2.5/IPRATROPIUM 0.5 INH SOL 3 ML VIAL.NEB. NEB ONE ×2 (14:51→15:00)
[2017-10-01 15:23] VITALS: BP 124/81; PULSE 99; TEMP 97.5
== END 2017-10-01 15:00 | disposition home or self-care (01) ==
LOC: JONCNONCHE 07:29 → J7W 14:03 → JONCNONCHE 15:00
PROVIDERS: ATTEND Internal Medicine Hematology & Oncology
PROC: 3E013GC Introduction of Other Therapeutic Substance into Subcutaneous Tissue, Percutaneous Approach (ICD-10-PCS; principal; 2017-10-01)
DX: C50.919 Malignant neoplasm of unspecified site of unspecified female breast (principal); Z76.89 Persons encountering health services in other specified circumstances
CPT/HCPCS: 96372; J2505

== ENCOUNTER 2017-10-14 07:34 | Day surgery (SDC) | payer OTHER ==
[2017-10-14] MEDS ORDERED: DEXAMETHASONE INJECTION 10 MG, DIPHENHYDRAMINE 25 MG, RANITIDINE INJECTION 50 MG in SOD... IVPB ONE (10:00)
[2017-10-14] MEDS ORDERED: SODIUM CHLORIDE 250 ML IV ONE ×2 (10:00→11:00)
[2017-10-14] MEDS ORDERED: PALONOSETRON HCL 0.25 MG in SODIUM CHLORIDE 50 ML IVPB ONE (10:00)
[2017-10-14] MEDS ORDERED: PACLITAXEL 138 MG in SODIUM CHLORIDE 250 ML IVPB ONE (10:30)
[2017-10-14 10:52] LABS: BASO # 0.1 #; EOS # 0.2 #; LYMPH # 1.8; MCH 27.9 pg (25.7-33.7); MCHC 31.5 g/dl (32.0-36.0); MEAN CELL VOLUME 88.4 fl (80-96); MEAN PLT VOLUME 9.6 fl (7.5-11.1); MONO # 1.4 #; NEUT # 7.1 #; PLATELET COUNT 282 K/MM3 (134-434); RDW 15.7 % (11.6-15.6); WHITE BLOOD COUNT 10.6 K/mm3 (4.0-10.0)
[2017-10-14 11:17] LABS: ALBUMIN 3.6 g/dl (3.4-5.0); ALK PHOS 80 U/L (45-117); ANION GAP 5 (8-16); BILIRUBIN,DIRECT < 0.2 mg/dL (0.0-0.2); BILIRUBIN,TOTAL 0.1 mg/dL (0.2-1.0); CALCIUM 8.6 mg/dL (8.5-10.1); CO2 28 mmol/L (21-32); CREATININE 0.6 mg/dL (0.55-1.02); GLUCOSE,RANDOM 91 mg/dL (74-106); SGOT/AST 12 U/L (15-37); SGPT/ALT 22 U/L (12-78); TOT PROT 7.5 g/dl (6.4-8.2)
[2017-10-14 12:48] VITALS: TEMP 97.8
[2017-10-14] MEDS ORDERED: ONDANSETRON 4 MG/2 ML VIAL ONE (13:45)
[2017-10-14 14:28] LABS: ANISOCYTOSIS 2+; BAND % 1.1 %; BASOPHIL %. 1.1 % (0-2.0); HYPOCHROMIA 2+; METAMYELOCYTE 0 % (0-2); MICROCYTOSIS 1+; PLATELET ESTIMATE NORMAL; POLYCHROMASIA 1+; REACTIVE LYMPHOCYTES 4 % (0-80); TEAR DROP CELLS 1+
[2017-10-14] MEDS ORDERED: ONDANSETRON 4 MG/2 ML VIAL IVPB ONE (14:30)
[2017-10-14 14:38] LABS: MYELOCYTE 9 % (0-2)
[2017-10-14] MEDS ORDERED: PORTA CATH FLUSH 10 ML IVPUSH ONE (16:01)
[2017-10-14 17:23] VITALS: BP 127/86; PULSE 84
== END 2017-10-14 17:00 | disposition home or self-care (01) ==
LOC: JONCCHEMO 07:34 → J7W 12:46 → JONCCHEMO 17:00
PROVIDERS: ATTEND Internal Medicine Hematology & Oncology
DX: Z51.11 Encounter for antineoplastic chemotherapy (principal); C50.919 Malignant neoplasm of unspecified site of unspecified female breast
CPT/HCPCS: 36415; 80053; 80076; 82784; 84155; 84165; 84703; 85025; 86334; 96361; 96367; 96375; 96413; J2469

== ENCOUNTER 2017-10-21 07:55 | Day surgery (SDC) | payer OTHER ==
[2017-10-21] MEDS ORDERED: PALONOSETRON HCL 0.25 MG/5 ML VIAL IVPUSH ONE (10:00)
[2017-10-21] MEDS ORDERED: DEXAMETHASONE INJECTION 10 MG, DIPHENHYDRAMINE 25 MG, RANITIDINE INJECTION 50 MG in SOD... IVPB ONE (10:00)
[2017-10-21] MEDS ORDERED: PACLITAXEL 132 MG in SODIUM CHLORIDE 250 ML IVPB ONE (11:00)
[2017-10-21] MEDS ORDERED: SODIUM CHLORIDE 250 ML IV ONE (12:00)
[2017-10-21 13:33] LABS: BASO % 1.3 % (0-2.0); EOS % 1.8 % (0-4.5); HEMATOCRIT 34.9 % (32.4-45.2); HEMOGLOBIN 11.2 GM/dL (10.7-15.3); LYMPH % 14.5 % (8-40); MCHC 32.1 g/dl (32.0-36.0); MEAN CELL VOLUME 87.3 fl (80-96); MEAN PLT VOLUME 9.8 fl (7.5-11.1); MONO % 10.5 % (3.8-10.2); NEUT % 71.9 % (42.8-82.8); PLATELET COUNT 396 K/MM3 (134-434); RBC 3.99 M/mm3 (3.60-5.2); RDW 15.6 % (11.6-15.6); WHITE BLOOD COUNT 9.5 K/mm3 (4.0-10.0)
[2017-10-21 13:58] LABS: ALBUMIN 3.6 g/dl (3.4-5.0); ALK PHOS 61 U/L (45-117); ANION GAP 9 (8-16); BILIRUBIN,DIRECT < 0.2 mg/dL (0.0-0.2); BILIRUBIN,TOTAL 0.2 mg/dL (0.2-1.0); BLOOD UREA NITROGEN 14 mg/dL (7-18); CALCIUM 9.3 mg/dL (8.5-10.1); CHLORIDE 107 mmol/L (98-107); CO2 25 mmol/L (21-32); CREATININE 0.6 mg/dL (0.55-1.02); GLUCOSE,RANDOM 115 mg/dL (74-106); MAGNESIUM 1.8 mg/dL (1.8-2.4); POTASSIUM 3.9 mmol/L (3.5-5.1); SGOT/AST 26 U/L (15-37); SGPT/ALT 36 U/L (12-78); SODIUM 141 mmol/L (136-145); TOT PROT 7.6 g/dl (6.4-8.2)
[2017-10-21 16:36] VITALS: TEMP 98.8
[2017-10-21] MEDS ORDERED: PORTA CATH FLUSH 10 ML IVPUSH ONE (16:36)
[2017-10-21 16:38] VITALS: BP 124/81; PULSE 98
== END 2017-10-21 16:40 | disposition home or self-care (01) ==
LOC: JONCCHEMO 07:55
PROVIDERS: ATTEND Internal Medicine Hematology & Oncology
DX: Z51.11 Encounter for antineoplastic chemotherapy (principal); C50.511 Malignant neoplasm of lower-outer quadrant of right female breast
CPT/HCPCS: 36415; 80053; 80076; 83735; 84703; 85025; 96367; 96375; 96413; J2469

== ENCOUNTER 2017-10-28 07:44 | Day surgery (SDC) | payer OTHER ==
[2017-10-28] MEDS ORDERED: DIPHENHYDRAMINE IVPB ONE (10:00)
[2017-10-28] MEDS ORDERED: RANITIDINE IVPB ONE (10:00)
[2017-10-28] MEDS ORDERED: PALONOSETRON HCL 0.25 MG/5 ML VIAL IVPUSH ONE (10:00)
[2017-10-28] MEDS ORDERED: DEXAMETHASONE IVPB ONE (10:00)
[2017-10-28] MEDS ORDERED: SODIUM CHLORIDE 250 ML IV ONE ×2 (10:00→11:30)
[2017-10-28] MEDS ORDERED: [UNRECOGNIZED DRUG - OTHER] IVPB ONE (10:00)
[2017-10-28] MEDS ORDERED: PACLITAXEL 132 MG in SODIUM CHLORIDE 250 ML IVPB ONE (10:30)
[2017-10-28 12:48] LABS: BASO % 2.3 % (0-2.0); EOS % 8.1 % (0-4.5); HEMATOCRIT 34.2 % (32.4-45.2); HEMOGLOBIN 10.9 GM/dL (10.7-15.3); LYMPH % 19.1 % (8-40); MCH 27.9 pg (25.7-33.7); MCHC 31.8 g/dl (32.0-36.0); MEAN CELL VOLUME 87.8 fl (80-96); MEAN PLT VOLUME 10.1 fl (7.5-11.1); MONO % 10.1 % (3.8-10.2); NEUT % 60.4 % (42.8-82.8); PLATELET COUNT 372 K/MM3 (134-434); RBC 3.89 M/mm3 (3.60-5.2); RDW 16.1 % (11.6-15.6); WHITE BLOOD COUNT 7.9 K/mm3 (4.0-10.0)
[2017-10-28 12:56] LABS: ALBUMIN 3.7 g/dl (3.4-5.0); ALK PHOS 55 U/L (45-117); ANION GAP 9 (8-16); BILIRUBIN,TOTAL 0.2 mg/dL (0.2-1.0); BLOOD UREA NITROGEN 14 mg/dL (7-18); CHLORIDE 104 mmol/L (98-107); CO2 28 mmol/L (21-32); CREATININE 0.5 mg/dL (0.55-1.02); GLUCOSE,RANDOM 84 mg/dL (74-106); SGOT/AST 31 U/L (15-37); SGPT/ALT 52 U/L (12-78); SODIUM 141 mmol/L (136-145); TOT PROT 7.6 g/dl (6.4-8.2)
[2017-10-28 15:29] VITALS: TEMP 97.7
[2017-10-28] MEDS ORDERED: PORTA CATH FLUSH 10 ML IVPUSH ONE (15:37)
[2017-10-28 16:08] VITALS: BP 129/84; PULSE 97
== END 2017-10-28 16:10 | disposition home or self-care (01) ==
LOC: JONCCHEMO 07:44 → J7W 11:33 → JONCCHEMO 16:10
PROVIDERS: ATTEND Internal Medicine Hematology & Oncology
DX: Z51.11 Encounter for antineoplastic chemotherapy (principal); C50.511 Malignant neoplasm of lower-outer quadrant of right female breast
CPT/HCPCS: 36415; 80053; 84702; 85025; 96361; 96367; 96375; 96413; J1100; J2469